=== PATIENT | male | born 1950 | race Asian ===

== ENCOUNTER 2024-03-20 15:31 | Inpatient (IN) | payer MEDICARE, OTHER ==
[2024-03-20] VITALS (7 sets, daily range): BP systolic 142–163; PULSE 38–71; RESP 14–22; TEMP 97.8–98.2; O2SAT 97–99
[~2024-03-20] VITALS: Ht 170.2 cm; Wt 61.2 kg
[2024-03-20 16:19] LABS: BASOPHILS % (AUTO) 0.3 % (0.0-2.0); EOSINOPHILS # (AUTO) 0.1 K/uL (0.0-0.4); EOSINOPHILS % (AUTO) 0.8 % (0.0-4.0); HEMATOCRIT 34.7 % (36-54); HEMOGLOBIN 12.1 g/dL (14.0-18.0); LYMPHOCYTES # (AUTO) 1.3 K/uL (1.0-5.5); LYMPHOCYTES % (AUTO) 16.3 % (20.5-51.5); MEAN CORPUSCULAR HEMOGLOBIN 32 pg (27-31); MEAN CORPUSCULAR HGB CONC 35 % (32-36); MEAN CORPUSCULAR VOLUME 92 fL (79.0-98.0); MONOCYTES # (AUTO) 0.6 K/uL (0.0-1.0); MONOCYTES % (AUTO) 7.3 % (1.7-9.3); NEUTROPHILS # (AUTO) 6.1 K/uL (1.8-7.7); NEUTROPHILS % (AUTO) 75.3 % (40.0-70.0); PLATELET COUNT (AUTO) 272 K/uL (130-430); RED BLOOD CELL COUNT(AUTO) 3.76 MIL/uL (4.2-6.2); RED CELL DISTRIBUTION WIDTH 12.5 % (9.0-15.0); WHITE BLOOD COUNT (AUTO) 8.1 K/uL (4.8-10.8)
[2024-03-20 16:35] LABS: ALANINE AMINOTRANSFERASE 27 U/L (12-78); ALBUMIN 3.5 g/dL (3.4-4.8); ANION GAP 10 (5-15); ASPARTATE AMINOTRANSFERASE 16 U/L (10-37); BILIRUBIN,DIRECT 0.1 mg/dL (0.0-0.3); CALCIUM 8.4 mg/dL (8.4-11.0); CARBON DIOXIDE 23 mmol/L (23-29); CHLORIDE 99 mmol/L (98-107); CREATININE 1.36 mg/dL (0.55-1.30); GLUCOSE 237 mg/dL (74-106); SODIUM SERUM 132 mmol/L (136-145); TOTAL BILIRUBIN 0.5 mg/dL (0.0-1.0); TOTAL PROTEIN, SERUM 7.1 g/dL (6.4-8.3); UREA NITROGEN, BLOOD 21 mg/dL (8-21)
[2024-03-20 16:58] LABS: THYROID STIMULATING HORMONE 2.86 uIu/mL (0.34-4.82)
[2024-03-20] MEDS ORDERED: ATROPINE SULFATE 0.4 MG/ML VIAL IVP PRN (17:15)
[2024-03-20] MEDS ORDERED: CETIRIZINE (17:32)
[2024-03-20] MEDS ORDERED: FLUT15.842 NS (17:32)
[2024-03-20] MEDS ORDERED: LOSA25TA18 PO (17:32)
[2024-03-20] MEDS ORDERED: DOPamine PREMIX 250 ML IV ONE (17:45)
[2024-03-20] MEDS ORDERED: DOPamine PREMIX 250 ML IV PRN (18:00)
[2024-03-20] MEDS ORDERED: D5/0.45 NS 1,000 ML IV ONE (18:00)
[2024-03-20] MEDS: ceFAZolin SODIUM 2 GM in D5W 100 ML IV ONE (18:45)
[2024-03-20] MEDS ORDERED: HEPARIN SODIUM,PORCINE 10,000 UNIT/ML VIAL ONE (19:05)
[2024-03-20] MEDS ORDERED: HYDROcodone/ACETAMIN 10-325 MG TAB PO PRN (22:00)
[2024-03-20] MEDS ORDERED: NALOXONE HCL 0.4 MG/ML AMP (NARCAN) IVP PRN ×2 (22:00)
[2024-03-20] MEDS ORDERED: LORazepam 2 MG/ML VIAL IVP PRN (22:00)
[2024-03-20] MEDS ORDERED: ACETAMINOPHEN 325 MG TABLET PO PRN (22:00)
[2024-03-20] MEDS ORDERED: ONDANSETRON HCL 4 MG/2 ML VIAL IVP PRN (22:00)
[2024-03-20] MEDS ORDERED: HYDROcodone/ACETAMIN 5-325 MG TAB (NORCO/ VICODIN) PO PRN (22:00)
[2024-03-20] MEDS: LOSARTAN POTASSIUM 25 MG TABLET PO SCH (22:15)
[2024-03-21] VITALS (20 sets, daily range): BP systolic 115–179; PULSE 61–74; RESP 12–27; TEMP 98.6–98.9; O2SAT 94–98
[2024-03-21 04:01] LABS: ANION GAP 9 (5-15); BASOPHILS % (AUTO) 0.3 % (0.0-2.0); CARBON DIOXIDE 25 mmol/L (23-29); CHLORIDE 104 mmol/L (98-107); CREATININE 1.46 mg/dL (0.55-1.30); EOSINOPHILS # (AUTO) 0.1 K/uL (0.0-0.4); EOSINOPHILS % (AUTO) 1.2 % (0.0-4.0); GLUCOSE 316 mg/dL (74-106); HEMATOCRIT 31.4 % (36-54); HEMOGLOBIN 11.1 g/dL (14.0-18.0); LYMPHOCYTES # (AUTO) 1.1 K/uL (1.0-5.5); LYMPHOCYTES % (AUTO) 19.9 % (20.5-51.5); MEAN CORPUSCULAR HEMOGLOBIN 33 pg (27-31); MEAN CORPUSCULAR HGB CONC 35 % (32-36); MEAN CORPUSCULAR VOLUME 94 fL (79.0-98.0); MONOCYTES # (AUTO) 0.5 K/uL (0.0-1.0); NEUTROPHILS % (AUTO) 69.6 % (40.0-70.0); PLATELET COUNT (AUTO) 244 K/uL (130-430); POTASSIUM 4.4 mmol/L (3.5-5.1); RED BLOOD CELL COUNT(AUTO) 3.36 MIL/uL (4.2-6.2); RED CELL DISTRIBUTION WIDTH 12.4 % (9.0-15.0); SODIUM SERUM 138 mmol/L (136-145); UREA NITROGEN, BLOOD 18 mg/dL (8-21); WHITE BLOOD COUNT (AUTO) 5.7 K/uL (4.8-10.8)
[2024-03-21] MEDS ORDERED: GLUCOSE (DEXTROSE) ORAL GEL -Adults PO PRN (06:00)
[2024-03-21] MEDS ORDERED: D5W 1,000 ML IV PRN (06:00)
[2024-03-21] MEDS ORDERED: DEXTROSE 50% JECT 50 ML DISP.SYRIN IVP PRN (06:00)
[2024-03-21] MEDS: INSULIN REGULAR, HUMAN 100 UNITS/ML, 3 ML VIAL (humuLIN R) SUBCUT PRN (06:29)
[2024-03-21] MEDS ORDERED: CETI-80 PO (06:40)
[2024-03-22] MEDS ORDERED: METOPROLOL SUCCINATE 25 MG TAB.SR.24H (TOPROL XL) PO SCH (09:00)
== END 2024-03-21 19:18 | disposition home or self-care (01) | DRG 228 ==
LOC: SED 15:31 → SIC 17:10 → UNDOADMIN 17:10 → SIC 18:15
PROVIDERS: ADMIT Preventive Medicine Preventive Medicine/Occupational Environmental Medicine; ATTEND Preventive Medicine Preventive Medicine/Occupational Environmental Medicine
PROC: 02HK3NZ Insertion of Intracardiac Pacemaker into Right Ventricle, Percutaneous Approach (ICD-10-PCS; principal; 2024-03-20 19:15)
DX: I44.2 Atrioventricular block, complete (principal); N17.0 Acute kidney failure with tubular necrosis; I24.89 Other forms of acute ischemic heart disease; I10 Essential (primary) hypertension; E11.65 Type 2 diabetes mellitus with hyperglycemia; D64.9 Anemia, unspecified; Z79.899 Other long term (current) drug therapy; I25.10 Atherosclerotic heart disease of native coronary artery without angina pectoris
CPT/HCPCS: 36415; 71045; 76000; 80048; 80076; 82948; 84443; 84484; 85025; 87081; 93005; 93306; 99291; C1786; C1894; J1265; J1644; J3010; J3465; J7030; J7060; Q9967